=== PATIENT | female | born 1960 | race Caucasian/White ===

== ENCOUNTER 2017-07-29 13:12 | Outpatient (CLI) | payer MEDICARE | END 2017-07-29 13:13 | disposition home or self-care (01) | LOC: BICMAMMO 13:12 | PROVIDERS: ATTEND Family Medicine | DX: M15.9 Polyosteoarthritis, unspecified (principal); S69.91XA Unspecified injury of right wrist, hand and finger(s), initial encounter; J44.9 Chronic obstructive pulmonary disease, unspecified; M81.0 Age-related osteoporosis without current pathological fracture; R60.9 Edema, unspecified; M19.041 Primary osteoarthritis, right hand; Z78.0 Asymptomatic menopausal state | CPT/HCPCS: 77080 ==

== ENCOUNTER 2017-08-28 08:45 | Outpatient (CLI) | payer MEDICARE | END 2017-08-28 08:46 | disposition home or self-care (01) | LOC: BICULT 08:45 | PROVIDERS: ATTEND Internal Medicine Gastroenterology | DX: R10.13 Epigastric pain (principal); R19.7 Diarrhea, unspecified; K76.0 Fatty (change of) liver, not elsewhere classified; K82.4 Cholesterolosis of gallbladder | CPT/HCPCS: 76700 ==

== ENCOUNTER 2018-07-14 14:09 | Outpatient (CLI) | payer MEDICARE | END 2018-07-14 14:10 | disposition home or self-care (01) | LOC: BICMAMMO 14:09 | PROVIDERS: ATTEND Family Medicine | DX: Z12.31 Encounter for screening mammogram for malignant neoplasm of breast (principal); Z85.41 Personal history of malignant neoplasm of cervix uteri | CPT/HCPCS: 77063; 77067 ==

== ENCOUNTER 2020-07-05 10:35 | Outpatient (CLI) | payer MEDICARE ==
--- NOTE | 2020-07-05 11:25 | MMO ---
Bilateral MAMMO Bilat Diag [facility]. CLINICAL HISTORY: Patient is 59 years old and is seen for diagnostic exam and pain in the left breast at 4 o'clock. The patient has no family history of breast cancer. VIEWS: The views performed were: bilateral craniocaudal with tomosynthesis; bilateral mediolateral oblique with tomosynthesis; and bilateral mediolateral with tomosynthesis. FILMS COMPARED: The present examination has been compared to prior imaging studies performed at [facility] on 08/09/2014, 04/21/2017, 07/14/2018 and 07/05/2020. This study has been interpreted with the assistance of computer-aided detection. MAMMOGRAM FINDINGS: There are scattered fibroglandular densities. There are no suspicious masses, suspicious calcifications, or new areas of architectural distortion. No mammographic or sonograhic abnormality is seen at the site of pain in the left breast. IMPRESSION: THERE IS NO MAMMOGRAPHIC EVIDENCE OF MALIGNANCY. A ROUTINE FOLLOW-UP MAMMOGRAM IN 1 YEAR IS RECOMMENDED. THE RESULTS OF THIS EXAM WERE SENT TO THE PATIENT. ACR BI-RADS Category 1 - Negative MAMMOGRAPHY NOTE: 1. A negative mammogram report should not delay a biopsy if a dominant of clinically suspicious mass is present. 2. Approximately 10% to 15% of breast cancers are not detected by mammography. 3. Adenosis and dense breasts may obscure an underlying neoplasm. Reported by: WM STREETER MD Electonically Signed: [id number]
--- NOTE | 2020-07-05 11:30 | ULT ---
US Breast Limited Lt HISTORY: Pain at the 4:00 position of the left breast COMPARISON: Mammogram of same date FINDINGS: Sonographic evaluation of the region of pain at the 4:00 position of the left breast demonstrates no abnormality. No mammographic abnormality was seen in this region. IMPRESSION: BI-RADS Category 1-negative. Return to annual mammographic screening. BI-RADS 1 -- negative findings (within normal)
== END 2020-07-05 10:36 | disposition home or self-care (01) ==
LOC: BICMAMMO 10:35
PROVIDERS: ATTEND Family Medicine
DX: N64.4 Mastodynia (principal)
CPT/HCPCS: 76642; 77066; G0279

== ENCOUNTER 2020-07-31 13:13 | Outpatient (CLI) | payer MEDICARE ==
--- NOTE | 2020-07-31 13:47 | RAD ---
SUPINE ABDOMEN: Date: 07/31/2020 INDICATION: Right upper quadrant pain. FINDINGS: Bowel gas pattern unremarkable. Scattered gas in the colon. No significant small bowel gas. Psoas mar gins are sharp. No abnormal calcification. IMPRESSION: Unremarkable exam. POS: AGW
--- NOTE | 2020-07-31 14:10 | ULT ---
EXAM: US Renal Bilateral STANDARD PROVIDED CLINICAL HISTORY: Back pain COMPARISON: None FINDINGS: Right kidney measures approximately 10.6 x 5.5 x 5.2 cm and demonstrates no evidence for hydronephros is, sonographically apparent calculus or mass. Left kidney measures approximately 11.3 x 5.4 x 5.6 cm and demonstrates no evidence for hydronephrosi s, sonographically apparent calculus or mass. Urinary bladder appears sonographically unremarkable. IMPRESSION: No evidence for hydronephrosis.
== END 2020-07-31 13:14 | disposition home or self-care (01) ==
LOC: BICULT 13:13
PROVIDERS: ATTEND Family Medicine
DX: R10.11 Right upper quadrant pain (principal); Z84.1 Family history of disorders of kidney and ureter
CPT/HCPCS: 74018; 76770

== ENCOUNTER 2023-08-14 13:02 | Outpatient (CLI) | payer MEDICARE | END 2023-08-14 13:03 | disposition home or self-care (01) | LOC: BICMAMMO 13:02 | PROVIDERS: ATTEND Family Medicine | DX: Z12.31 Encounter for screening mammogram for malignant neoplasm of breast (principal); M81.0 Age-related osteoporosis without current pathological fracture; M85.88 Other specified disorders of bone density and structure, other site | CPT/HCPCS: 77063; 77067; 77080 ==

== ENCOUNTER 2024-08-17 12:09 | Outpatient (CLI) | payer MEDICARE | END 2024-08-17 12:10 | disposition home or self-care (01) | LOC: BICMAMMO 12:09 | PROVIDERS: ATTEND Family Medicine | DX: Z12.31 Encounter for screening mammogram for malignant neoplasm of breast (principal) | CPT/HCPCS: 77063; 77067 ==